=== PATIENT | male | born 1985 | race Caucasian/White ===

== ENCOUNTER 2024-02-23 01:30 | Emergency (ER) | payer MEDICAID ==
[~2024-02-23] VITALS: Ht 180.3 cm; Wt 7.7 kg
[2024-02-23] MEDS ORDERED: NAPR-1164 PO (02:24)
[2024-02-23] MEDS ORDERED: CLIN-118 PO (02:24)
[2024-02-23] MEDS ORDERED: CLINDAMYCIN HCL 150 MG CAPSULE ONE (02:27)
[2024-02-23] MEDS ORDERED: HYDROCODONE/APAP 10-325 MG TABLET ONE (02:28)
[2024-02-23] MEDS: CLINDAMYCIN HCL 150 MG CAPSULE PO ONE (02:31)
[2024-02-23] MEDS: HYDROCODONE/APAP 10-325 MG TABLET PO ONE (02:32)
[2024-02-23 02:42] VITALS: BP 122/77; TEMP 98; O2SAT 98
== END 2024-02-23 02:35 | disposition home or self-care (01) ==
LOC: ER 01:41
DX: K04.7 Periapical abscess without sinus (principal); Z98.890 Other specified postprocedural states; Z79.899 Other long term (current) drug therapy
CPT/HCPCS: A4606; A4663